=== PATIENT | female | born 1985 | race Caucasian/White ===

== ENCOUNTER → 2016-08-26 | Outpatient (CLI) | payer OTHER ==
[2016-08-26 13:08] LABS: ALT 45 U/L (9-52); AST 23 U/L (14-36); Alkaline Phosphatase 84 U/L (38-126); Anion Gap 12 mmol/L; Blood Urea Nitrogen 11 mg/dL (7-17); Calcium 9.1 mg/dL (8.4-10.2); Carbon Dioxide 23 mmol/L (22-30); Chloride 108 mmol/L (98-107); Glucose 84 mg/dL (74-99); Non-African American GFR(MDRD) >60 (>60 ml/min/1.73 sqM); Potassium 4.3 mmol/L (3.5-5.1); Sodium 143 mmol/L (137-145); Total Bilirubin 0.4 mg/dL (0.2-1.3); Total Protein 7.5 g/dL (6.3-8.2)
[2016-08-26 13:15] LABS: CH 32.2; CHCM 33.9; HCT 44.9 % (34.0-46.0); HDW 2.41; HGB 15.1 gm/dL (11.4-16.0); MCH 32.1 pg (25.0-35.0); MCHC 33.6 g/dL (31.0-37.0); MCV 95.4 fL (80.0-100.0); Mean Platelet Volume 7.1; RBC 4.71 m/uL (3.80-5.40); RDW 13.1 % (11.5-15.5); WBC 9.4 k/uL (3.8-10.6)
== END | disposition home or self-care (01) ==
LOC: LABWHC1 12:12
PROVIDERS: ATTEND Psychiatry & Neurology Psychiatry
DX: E03.9 Hypothyroidism, unspecified (principal)
CPT/HCPCS: 36415; 80053; 84439; 84443; 85027

== ENCOUNTER → 2017-08-25 | Outpatient (CLI) | payer OTHER ==
[2017-08-25 13:42] LABS: HCT 46.8 % (34.0-46.0); HGB 14.7 gm/dL (11.4-16.0); MCH 30.9 pg (25.0-35.0); MCHC 31.4 g/dL (31.0-37.0); MCV 98.4 fL (80.0-100.0); Platelet Count 297 k/uL (150-450); RBC 4.75 m/uL (3.80-5.40); RDW 14.1 % (11.5-15.5); WBC 9.4 k/uL (3.8-10.6)
[2017-08-25 13:55] LABS: ALT 35 U/L (9-52); AST 21 U/L (14-36); Albumin 4.3 g/dL (3.5-5.0); Alkaline Phosphatase 75 U/L (38-126); Anion Gap 9 mmol/L; Blood Urea Nitrogen 11 mg/dL (7-17); Calcium 9.4 mg/dL (8.4-10.2); Carbon Dioxide 28 mmol/L (22-30); Chloride 107 mmol/L (98-107); Glucose 77 mg/dL (74-99); Potassium 4.2 mmol/L (3.5-5.1); Sodium 144 mmol/L (137-145); Total Bilirubin 0.2 mg/dL (0.2-1.3); Total Protein 7.2 g/dL (6.3-8.2)
[2017-08-25 14:09] LABS: T4, Free (Free Thyroxine) 0.98 ng/dL (0.78-2.19)
== END | disposition home or self-care (01) ==
LOC: LABWHC1 12:10
PROVIDERS: ATTEND Psychiatry & Neurology Psychiatry
DX: E03.9 Hypothyroidism, unspecified (principal); Z79.899 Other long term (current) drug therapy
CPT/HCPCS: 36415; 80053; 84439; 84443; 85027

== ENCOUNTER → 2018-09-07 | Outpatient (CLI) | payer OTHER ==
[2018-09-07 13:11] LABS: HCT 46.8 % (34.0-46.0); HGB 15.2 gm/dL (11.4-16.0); MCH 31.2 pg (25.0-35.0); MCHC 32.5 g/dL (31.0-37.0); MCV 96.2 fL (80.0-100.0); Mean Platelet Volume 7.1; Platelet Count 285 k/uL (150-450); RBC 4.87 m/uL (3.80-5.40); RDW 12.8 % (11.5-15.5); WBC 12.7 k/uL (3.8-10.6)
[2018-09-07 20:18] LABS: Albumin 4.4 g/dL (3.80-4.90); Anion Gap 7.5 mmol/L (4.00-12.00); Calcium 8.8 mg/dL (8.7-10.3); Carbon Dioxide 23.5 mmol/L (21.6-31.8); Globulin 2.2 g/dL (1.6-3.3); LDL Cholesterol,Calculated 150.4 mg/dL (0.0-131.0); Potassium 4.1 mmol/L (3.5-5.5); Total Bilirubin 0.6 mg/dL (0.2-1.2); Total Protein 6.6 g/dL (6.2-8.2); VLDL Calculation 19.6 mg/dL (5.00-40.00)
[2018-09-07 20:26] LABS: T4, Free (Free Thyroxine) 1.3 ng/dL (0.80-1.80)
[2018-09-07 20:31] LABS: Vitamin D 25 Hydroxy 11.1 ng/mL (30.0-100.0)
== END | disposition home or self-care (01) ==
LOC: LABWHC1 12:43
PROVIDERS: ATTEND Psychiatry & Neurology Psychiatry
DX: F31.81 Bipolar II disorder (principal); Z79.899 Other long term (current) drug therapy
CPT/HCPCS: 36415; 80053; 80061; 82306; 84439; 84443; 85027; 86038

== ENCOUNTER → 2018-12-14 | Outpatient (CLI) | payer OTHER ==
[2018-12-14 12:27] LABS: HCT 44.8 % (34.0-46.0); HGB 14.7 gm/dL (11.4-16.0); MCH 31.7 pg (25.0-35.0); MCHC 32.8 g/dL (31.0-37.0); MCV 96.7 fL (80.0-100.0); Mean Platelet Volume 7.5; Platelet Count 290 k/uL (150-450); RBC 4.63 m/uL (3.80-5.40); RDW 14.4 % (11.5-15.5); WBC 7.3 k/uL (3.8-10.6)
[2018-12-14 18:43] LABS: Albumin 4.6 g/dL (3.80-4.90); Albumin/Globulin Ratio 2.42 (1.60-3.17); Anion Gap 4.8 mmol/L (4.00-12.00); Calcium 8.9 mg/dL (8.7-10.3); Carbon Dioxide 25.2 mmol/L (21.6-31.8); Globulin 1.9 g/dL (1.6-3.3); LDL Cholesterol,Calculated 136.2 mg/dL (0.0-131.0); Potassium 4.1 mmol/L (3.5-5.5); Total Bilirubin 0.4 mg/dL (0.2-1.2); Total Protein 6.5 g/dL (6.2-8.2); VLDL Calculation 20.8 mg/dL (5.00-40.00)
== END ==
LOC: LABWHC1 11:46
PROVIDERS: ATTEND Psychiatry & Neurology Psychiatry
DX: E03.9 Hypothyroidism, unspecified (principal); Z79.899 Other long term (current) drug therapy
CPT/HCPCS: 36415; 80053; 80061; 84439; 84443; 85027

== ENCOUNTER → 2019-05-11 | Outpatient (CLI) | payer OTHER ==
[2019-05-11 12:17] LABS: HCT 44.1 % (34.0-46.0); HGB 14.6 gm/dL (11.4-16.0); MCH 32.2 pg (25.0-35.0); MCHC 33.2 g/dL (31.0-37.0); MCV 97.2 fL (80.0-100.0); Mean Platelet Volume 6.4; Platelet Count 313 k/uL (150-450); RBC 4.53 m/uL (3.80-5.40); WBC 8.8 k/uL (3.8-10.6)
[2019-05-11 18:47] LABS: Chol/HDL Ratio 5.24
[2019-05-11 19:31] LABS: Hemoglobin A1C 5.1 % (4.0-6.0)
== END | disposition home or self-care (01) ==
LOC: LABWHC1 11:26
PROVIDERS: ATTEND Psychiatry & Neurology Psychiatry
DX: F31.60 Bipolar disorder, current episode mixed, unspecified (principal); Z79.899 Other long term (current) drug therapy
CPT/HCPCS: 36415; 80061; 83036; 84450; 84460; 85027; 86038

== ENCOUNTER → 2019-09-10 | Outpatient (CLI) | payer OTHER ==
--- NOTE | 2019-09-10 21:55 | US ---
EXAMINATION TYPE: US pelvic complete DATE OF EXAM: 09/10/2019 COMPARISON: NONE CLINICAL HISTORY: 33-year-old female R10.2 Pelvic pain. TECHNIQUE: Transabdominal sonographic images of the pelvis were acquired. Date of LMP: 09/07/2019 FINDINGS: EXAM MEASUREMENTS: Uterus: 7.5 x 3.7 x 4.0 cm Endometrial Stripe: 0.4 cm Right Ovary: 2.0 x 1.8 x 1.4 cm Left Ovary: 1.9 x 1.6 x 1.1 cm 1. Uterus: Anteverted wnl 2. Endometrium: wnl 3. Right Ovary: wnl 4. Left Ovary: wnl 5. Bilateral Adnexa: wnl 6. Posterior cul-de-sac: wnl IMPRESSION: Unremarkable transabdominal sonographic examination of the pelvis.
== END | disposition home or self-care (01) ==
LOC: RADUSWWP 15:42
PROVIDERS: ATTEND Obstetrics & Gynecology
DX: R10.2 Pelvic and perineal pain (principal)
CPT/HCPCS: 76856

== ENCOUNTER → 2021-11-23 | Outpatient (CLI) | payer OTHER ==
[2021-11-23 14:49] LABS: HCT 43.5 % (37.2-46.3); HGB 14.6 g/dL (12.0-15.0); MCH 31.9 pg (27.0-32.0); MCHC 33.6 g/dL (32.0-37.0); Mean Platelet Volume 10.3 fL (9.5-12.2); NRBC Per 100 WBC 0 /100 WBCS (0.0-0.0); Platelet Count 287 X 10*3/uL (140-440); RBC 4.58 X 10*6/uL (4.10-5.20); RDW 13.2 % (11.5-14.5); WBC 7.37 X 10*3/uL (4.50-10.00)
[2021-11-23 15:22] LABS: Rheumatoid Factor, Qnt <10 IU/mL (0-15)
[2021-11-23 15:47] LABS: Erythrocyte Sedimentation Rate 13 mm/Hr (0-20)
[2021-11-23 16:50] LABS: DNA Double-Stranded NEGATIVE (NEGATIVE)
[2021-11-23 17:11] LABS: ALT 21 U/L (8-44); AST 17 U/L (13-35); African American GFR (CKD) 130.1 (60.0-200.0); Albumin 4.3 g/dL (3.8-4.9); Albumin/Globulin Ratio 1.65 (1.60-3.17); Alkaline Phosphatase 77 U/L (41-126); Blood Urea Nitrogen 11.2 mg/dL (9.0-27.0); C Reactive Protein <0.30 mg/dL (0.00-0.80); Calcium 8.7 mg/dL (8.7-10.3); Chloride 108 mmol/L (96-109); Chol/HDL Ratio 5.99 Ratio; Globulin 2.6 g/dL (1.6-3.3); Glucose 87 mg/dL (70-110); LDL Cholesterol,Calculated 121.4 mg/dL (0.0-131.0); Non-African American GFR(CKD) 112.3 (60.0-200.0); Potassium 4.2 mmol/L (3.5-5.5); Sodium 140 mmol/L (135-145); Total Bilirubin <0.15 mg/dL (0.30-1.20); Total Protein 6.9 g/dL (6.2-8.2)
== END | disposition home or self-care (01) ==
LOC: LABWHC1 10:09
PROVIDERS: ATTEND Psychiatry & Neurology Psychiatry
DX: F31.60 Bipolar disorder, current episode mixed, unspecified (principal)
CPT/HCPCS: 36415; 80053; 80061; 82306; 84439; 84443; 85027; 85652; 86038; 86140; 86225; 86431

== ENCOUNTER → 2023-01-06 | Outpatient (CLI) | payer OTHER ==
--- NOTE | 2023-01-06 11:39 | US ---
EXAMINATION TYPE: US carotid duplex BILAT DATE OF EXAM: 01/06/2023 COMPARISON: NONE CLINICAL INDICATION: Female, 37 years old with history of R55 SYNCOPE; syncope TECHNIQUE: Carotid duplex ultrasound examination. Indirect Doppler criteria was utilized. FINDINGS: EXAM MEASUREMENTS: RIGHT: Peak Systolic Velocity (PSV) cm/sec ----- Right CCA: 129.2 ----- Right ICA: 121.4 ----- Right ECA: 148.9 ICA/CCA ratio: 0.9 RIGHT: End Diastole cm/sec ----- Right CCA: 34.7 ----- Right ICA: 50.4 ----- Right ECA: 32.7 LEFT: Peak Systolic Velocity (PSV) cm/sec ----- Left CCA: 121.4 ----- Left ICA: 104.2 ----- Left ECA: 98.3 ICA/CCA ratio: 0.9 LEFT: End Diastole cm/sec ----- Left CCA: 38.6 ----- Left ICA: 51 ----- Left ECA: 25.4 VERTEBRALS (direction of flow): Right Vertebral: Antegrade Left Vertebral: Antegrade Rhythm: Normal [employer] NOTES: No significant stenosis seen IMPRESSION: Less than 50% stenosis of the bilateral carotid bifurcations. Criteria for Assigning % of Stenosis / Diameter reduction (Estimation based on the indirect measurements of the internal carotid artery velocities (ICA PSV). 1. Normal (no stenosis)=ICA PSV < 125 cm/s: ratio < 2.0: ICA EDV<40 cm/s. 2. Less than 50% stenosis=ICA PSV < 125 cm/s: ratio < 2.0: ICA EDV<40 cm/s. 3. 50 to 69% stenosis=ICA PSV of 125 to 230 cm/s: ration 2.0 ? 4.0: ICA EDV 40-100 cm/s. 4. Greater than 70% stenosis to near occlusion= ICA PSV > 230 cm/s: ratio > 4.0: ICA EDV > 100 cm/s. 5. Near occlusion= ICA PSV velocities may be low or undetectable: variable ratio and ICA EDV. 6. Total occlusion=unable to detect flow.
== END | disposition home or self-care (01) ==
LOC: RADUSWWP 11:02
PROVIDERS: ATTEND Family Medicine
DX: I65.23 Occlusion and stenosis of bilateral carotid arteries (principal); R55 Syncope and collapse
CPT/HCPCS: 93880